=== PATIENT | female | born 1990 | race Caucasian/White ===

== ENCOUNTER 2018-09-25 12:04 | Emergency (ER) | payer MEDICAID, SELFPAY ==
[2018-09-25] VITALS (11 sets, daily range): BP systolic 129–156; BP diastolic 83–88; PULSE 74–133; RESP 14–18; TEMP 36.9; O2SAT 96–98; BMI 33.3
--- NOTE | 2018-09-25 12:15 | CM.ED ---
SOCIAL WORK TERRANCE FROM CRISIS HERE. PATIENT HAS BEEN ASSESSED BY CRISIS IN HOME. PLAN IS FOR PLACEMENT. PATIENT NEEDING MEDICAL CLEARANCE. KOTA DOSS, VOLLEYBALL ASSEMBLER, MEDICAL OFFICE SUPERVISOR.
[2018-09-25 13:08] LABS: Absolute Neutrophil Count 6.3 X10^3/uL (2.0-7.7); Basophil# 0.02 X10^3/uL; Basophil% 0.2 % (0-1); Eosinophil# 0.03 X10^3/uL; Eosinophils% 0.4 % (0-5); Hemoglobin 12.9 g/dl (13.0-16.5); Lymphocyte % 14.6 % (19-41); Mean Corp Hgb Conc 33.1 g/gl (32-36); Mean Corpuscular Hgb 30.1 pg (27.0-32.0); Mean Corpuscular Volume 90.9 fL (80-94); Mean Platelet Vol. 10.7 fl (6.2-12.0); Monocyte# 0.69 X10^3/uL; Monocyte% 8.4 % (0-10); Neutrophil # 6.25 X10^3/uL (2.7-7.7); Neutrophil % 76.3 % (47-70); Platelet Count 330 K/mm3 (150-450); RBC Distribution Width CV 13.4 % (11.6-14.6); RBC Distribution Width SD 44.4 fl (35.1-43.9); Red Blood Count 4.29 M/mm3 (4.6-6.2); White Blood Count 8.2 K/mm3 (4.4-11.0)
[2018-09-25 13:10] LABS: POSITIVE COUNT NO; POSITIVE DIFFERENTIAL NO; POSITIVE MORPHOLOGY NO
[2018-09-25 13:18] LABS: Anion Gap 7 (5-15); BUN 12 mg/dL (7-18); BUN/Creat Ratio 10.7 RATIO (10-20); Calcium,Total 9.1 mg/dL (8.5-10.1); Chloride 111 mmol/L (98-107); Creatinine, Serum 1.12 mg/dL (0.70-1.30); EST Glomerular Filtration Rate 84 mL/min (>60); Est Glom Filt Rate - Afr Amer 102 mL/min (>60); Estimated Creatinine Clearance 86.94 ml/min; Glucose 121 mg/dL (74-106); Potassium 3.7 mmol/L (3.5-5.1); Sodium Level 141 mmol/L (136-145)
--- NOTE | 2018-09-25 13:20 | ED.DCSUM_ITS ---
History of Present Illness Chief Complaint: Suicidal Informant: Patient Onset: Month(s) Current Severity: Mild Narrative: Patient presents from home with police related to suicidal ideation. The patient is a biological male whose name was Fermin patient indicates they are transgender and he prefers to be called Danitza and using the female pronouns Patient indicates a long history of suicidal ideation followed by counseling center. Those are not with the parents last night the patient's suicidal ideation intensified mother called the counseling center counseling center personnel went to the home try to do an assessment found the patient actively suicidal police were called and the patient was brought to the emergency department for evaluation. Patient denies any past history other than suicidal ideation no past medical problems denies drug use Past Medical History - Allergies and Home Meds Allergies/Adverse Reactions: Allergies No Known Allergies Allergy (Verified 09/25/18 12:12) Primary Care Physician: Care Physician,No Primary [Primary Care Provider] - Past Medical History: - - As above Smoking Status: Current every day smoker Review of Systems General: Denies: Chills, Fever, Sweats Eyes: Denies: Visual changes - bilaterally, Diplopia ENT: Denies: Rhinorrhea, Sore throat Cardiovascular: Denies: Chest pain, Palpitations Respiratory: Denies: Dyspnea, Cough, Dyspnea on exertion Gastrointestinal: Denies: Abdominal pain, Nausea, Vomiting, Diarrhea, Melena, Hematochezia Genitourinary: Denies: Dysuria, Hematuria, Frequency Musculoskeletal: Denies: Back pain, Extremity Pain Skin: Denies: Rash, Wounds Neurological: Denies: Headache, Weakness, Numbness Physical Exam Vital Signs/Narrative: Vital Signs Temp Pulse Resp BP Pulse Ox 09/25/18 13:16 15 98 09/25/18 12:10 98.4 F 133 H 18 156/87 H 98 General: Well nourished, Well developed, No Acute Distress Head: Normocephalic, Atraumatic Eyes: Perrl, EOMI ENT: Moist mucous membranes, No rhinorrhea Neck: Supple, Nontender Cardiovascular: Regular rate, Regular rhythm, No murmurs Respiratory: No distress, CTA bilaterally, Chest nontender Abdomen: Soft, Nontender, Nondistended, Normal bowel sounds Back: Nontender, Normal Inspection Extremities: Nontender, No edema Skin: Normal color, No rash Neurological: Alert, Oriented x3, Cranial nerves II-XII grossly intact, Normal Strength, Normal Sensation Psychological: Normal affect, Normal Mood Diagnostic/Tx/Re-eval - Medical Decision Making admits to chronic suicidal ideation indicates there was no specific triggers that intensify the situation other than the argument with the mother the patient is indicating they would not harm themselves they do not wish to be admitted I explained to the patient that the [facility] mental health professional need to see the patient and determine further management options and possible admission. Screening labs were obtained please see those reports, the counseling center personnel seen the patient and believe the patient would benefit from admission and we discussed this with the patient admit For suicidal ideation via [facility] Final impression suicidal ideation, depression, transgender status male to female ED Disposition - Plan for ED Patient: Referrals: Care Physician,No Primary [Primary Care Provider] -
[2018-09-25 13:31] LABS: Alcohol, Blood (Medical)-Serum < 3.0 mg/dL
--- NOTE | 2018-09-25 13:35 | NURSING ---
TERRANCE, LUZMA, CAME WITH PATIENT. TERRANCE LEAVING FOR COUNSELING CENTER. ASKED TO HAVE LABS FAXED TO CRISIS [phone]
[2018-09-25 14:52] LABS: Amphetamine Urine VISTA NEGATIVE (<1000 ng/mL); Barbiturate Urine VISTA NEGATIVE (< 200 ng/mL); Benzodiazepine Urine VISTA NEGATIVE (< 200 ng/mL); Cocaine Urine VISTA NEGATIVE (< 300 ng/mL); Ecstacy Urine VISTA NEGATIVE (< 500 ng/mL); Methadone Urine VISTA NEGATIVE (< 300 ng/mL); PCP Urine VISTA NEGATIVE (< 25 ng/mL); THC Urine VISTA NEGATIVE (< 50 ng/mL); Vista UDS pH Range 6
--- NOTE | 2018-09-25 14:52 | ED.RN ---
WAITING FOR UA RESULTS. PT WAS GIVEN THEIR PHONE. PT RESTING IN BED. NO S/S OF AGITATION OR AGGRESSION. Jeronimo VILLALBA RN [id number]
--- NOTE | 2018-09-25 16:44 | EKG12_ITS ---
Test Reason : [facility] Blood Pressure : / mmHG Vent. Rate : 101 BPM Atrial Rate : 101 BPM P-R Int : 154 ms QRS Dur : 088 ms QT Int : 340 ms P-R-T Axes : 033 014 020 degrees QTc Int : 440 ms Sinus tachycardia Otherwise normal ECG Confirmed by JENNY JAIME, PALMER ([id number]), clinical editor SNEHA MILLER ([id number]) on 09/27/2018 12:10:20 PM Referred By: JULY Confirmed By:PALMER ALVARADO MD
[2018-09-25 18:04] LABS: AST(SGOT) 21 U/L (15-37); Alanine Aminotransfer ALT/SGPT 29 U/L (13-61); Albumin, Serum 4.3 g/dL (3.2-5.0); Alkaline Phosphatase 64 U/L (45-117); Bilirubin, Direct < 0.05 mg/dL (0.00-0.30); Globulin 3.3 g/dL (2.2-4.2); Protein, Total 7.6 g/dL (6.4-8.2)
--- NOTE | 2018-09-25 18:07 | NURSING ---
FAXED EKG AND LIVER PANEL TO [facility]
--- NOTE | 2018-09-25 20:59 | CM.ED ---
SOCIAL WORK CALL TO THE COUNSELING CENTER FOR UPDATE ON REFERRAL TO [facility]. AWAITING CALL BACK. KOTA DOSS, STEWARD/[employer]EWARD[employer]ILRO[employer] D[employer]ING [employer], TURFGRASS MANAGEMENT PROFESSOR.
--- NOTE | 2018-09-25 21:07 | ED.RN ---
NOHELIA BAUGH FROM CRISIS, STILL WAITING ON ACCEPTANCE AT [facility]
--- NOTE | 2018-09-25 22:54 | ED.RN ---
PER THANH FROM [facility], [facility] ATTEMPTING TO DIVERT THIS PT TO ANOTHER FACILITY, NO ACCEPTANCE AT THIS TIME
[2018-09-26] VITALS (7 sets, daily range): BP systolic 126–136; BP diastolic 86–88; PULSE 63–84; RESP 14–16; O2SAT 98
--- NOTE | 2018-09-26 04:22 | ED.RN ---
ATTEMPTED TO ARRANGE TRANSPORT TO [facility] PLACED ON HOLD FOR SEVERAL MINUTES, HAD TO ANSWER OTHER CALLS, WAS UNABLE TO RECONNECT WITH [facility]. INDIGENT PT, [facility] THE [facility] CENTER FOR TRANSPORT.
== END 2018-09-26 09:45 ==
PROVIDERS: Emergency Medicine; Emergency Provider Emergency Medicine
DX: R45.851 Suicidal ideations (principal); F32.9 Major depressive disorder, single episode, unspecified; F17.200 Nicotine dependence, unspecified, uncomplicated
CPT/HCPCS: 36415; 80048; 80076; 80307; 80320; 85025; 93005; 99285; G0480

== ENCOUNTER 2019-03-24 16:47 | Emergency (ER) | payer MEDICAID, SELFPAY ==
[2018-09-25 12:10] VITALS: BMI 33.3
[2019-03-24 16:47] VITALS: BP 143/84; PULSE 106; RESP 16; TEMP 36.4; O2SAT 100; BMI 35.6
[2019-03-24 17:45] VITALS: BP 143/84; PULSE 106; RESP 16; TEMP 36.4; O2SAT 100
[2019-03-24 17:51] LABS: Mucous, Urine 0 SEEN /hpf (<or=2+)
[2019-03-24 17:53] LABS: Color, Urine Yellow (Yellow); Glucose, Dipstick Normal (Normal); Ketone-Dipstick 15 mg/dl (Negative); Leukocyte Esterase-Dipstick 500 /ul (Negative); Nitrite-Dipstick Negative (Negative); Occult Blood-Urine 250 /ul (Negative); Protein-Dipstick 100 mg/dl (Negative); Urine Clarity Cloudy (Clear); Urine Urobilinogen 12 mg/dl (Normal)
[2019-03-24 18:00] LABS: Urine Bilirubin Dipstick 1 mg/dL (Negative)
[2019-03-24 18:02] LABS: White Blood Cells >100 SEEN /hpf (0-5)
[2019-03-24 18:03] LABS: Red Blood Cells-Urine > 100 SEEN /hpf (0-5); Squamous Epithelial Cells - UA 0-5 SEEN /hpf (5-10)
[2019-03-24 18:04] LABS: Transitional Epithelial - Ur 0-5 SEEN /hpf (0-5)
[2019-03-24 18:08] LABS: Bacteria 1+ /hpf (None Seen)
--- NOTE | 2019-03-24 18:37 | ED.VISSUMM ---
- ER Visit Summary Date of Service: 03/24/19 Chief Complaint: Lower abdominal pain and hematuria History of Present Illness: The patient is a 28 F who presents with lower abdominal pain and hematuria that began yesterday. Patient states her pain is over the lower abdomen. Patient describes as dull and aching. Patient states the pain is localized to the suprapubic area. Patient states nothing makes it better or worse. Patient admits to subjective chills. Patient admits to some hematuria and urinary frequency. Physical Examination: Vital signs are stable. Patient is afebrile here. Patient is in no acute distress. Oral mucosa is pink and moist. Neck is supple. Trachea is midline. There is no JVD. Heart was regular rate and rhythm. Lungs are clear and equal bilateral. Abdomen is soft. Bowel sounds are normal. There is some mild suprapubic tenderness. There is no rebound or guarding noted. Cranial nerves II through XII are intact. There are no focal motor or sensory deficits noted. Test Results: Urinalysis shows leukocyte esterase of 500 with occult blood of 250. There are greater than 100 white blood cells and greater than 100 red blood cells. There is 1+ bacteria. Emergency Department Course and Treatment: Patient was given a prescription for Bactrim. Patient was instructed to drink plenty of fluids. Patient was instructed to follow-up with her primary care physician in 5 to 7 days. Patient understood and was agreeable with the plan. All questions were answered. Disposition: Discharge home Impression: Urinary tract infection This note was generated with [employer] dictation software. It may contain incorrect words, spelling, and punctuation that were not noted in review of the chart prior to signing ED Disposition - Plan for ED Patient: Disposition: Home or Assisted Living Diagnosis: Urinary tract infection Instructions: Bladder Infection, Female (Adult) Prescriptions: Smz/Tmp Ds [Bactrim Ds] 1 tab PO BID #6 tab Prescription Printed Referrals: Care Physician,No Primary [Primary Care Provider] - 5-7 Days
== END 2019-03-24 18:48 | disposition home or self-care (01) ==
PROVIDERS: Emergency Provider Emergency Medicine
DX: N39.0 Urinary tract infection, site not specified (principal); Z87.891 Personal history of nicotine dependence
CPT/HCPCS: 81001; 99282

== ENCOUNTER 2019-03-25 16:23 | Emergency (ER) | payer MEDICAID, SELFPAY ==
[2019-03-24 16:47] VITALS: BMI 35.6
[2019-03-25 16:24] VITALS: BP 142/110; PULSE 110; RESP 18; TEMP 35.8; O2SAT 100; BMI 35.5
[2019-03-25 16:27] VITALS: BP 142/110; PULSE 110; RESP 18; TEMP 35.8; O2SAT 100
[2019-03-25 16:55] LABS: Absolute Lymphocyte Count 2.57 X10^3/uL (0.83-4.51); Absolute Neutrophil Count 8.4 X10^3/uL (2.0-7.7); Basophil# 0.02 X10^3/uL; Basophil% 0.2 % (0-1); Eosinophil# 0.01 X10^3/uL; Eosinophils% 0.1 % (0-5); Hemoglobin 13.5 g/dL (12.0-15.0); Lymphocyte # 2.57 X10^3/ul (4.0); Lymphocyte % 21.1 % (19-41); Mean Corp Hgb Conc 32.9 g/dL (32-36); Mean Corpuscular Volume 91.1 fL (81-99); Monocyte# 1.13 X10^3/uL; Monocyte% 9.3 % (0-10); NRBC Flagged by Analyzer 0 % (0-5); Neutrophil # 8.41 X10^3/uL (2.7-7.7); Platelet Count 318 K/mm3 (150-450); RBC Distribution Width CV 13.2 % (11.6-14.6); RBC Distribution Width SD 43.9 fl (35.1-43.9); White Blood Count 12.2 K/mm3 (4.4-11.0)
[2019-03-25 17:36] LABS: Anion Gap 9 (5-15); BUN 6 mg/dL (7-18); BUN/Creat Ratio 5.8 RATIO (10-20); Calcium,Total 9.4 mg/dL (8.5-10.1); Chloride 106 mmol/L (98-107); Creatinine, Serum 1.04 mg/dL (0.55-1.02); EST Glomerular Filtration Rate 68 mL/min (>60); Est Glom Filt Rate - Afr Amer 82 mL/min (>60); Estimated Creatinine Clearance 76.74 ml/min; Glucose 129 mg/dL (74-106); Potassium 3.4 mmol/L (3.5-5.1); Sodium Level 139 mmol/L (136-145)
[2019-03-25 17:37] LABS: Internal QC Validated? YES +Cl - CLEAR BKGD; Pregnancy, Serum, hCG Quali. NEGATIVE Negative
--- NOTE | 2019-03-25 18:13 | CT_ITS ---
STUDY: CT ABDOMEN AND PELVIS WITHOUT CONTRAST REASON FOR EXAM: Female, 28 years old. FLANK PAIN, DX WITH UTI YESTERDAY RADIATION DOSAGE (If Supplied By Facility): CTDIvol = ( 14.35 ) mGy, DLP = ( 749.07 ) mGycm TECHNIQUE: Transaxial images were obtained from the dome of the diaphragm to the symphysis pubis without oral contrast, and without intravenous contrast. Sagittal and coronal images were reconstructed. Individualized dose optimization techniques were used for this CT. COMPARISON: None. FINDINGS: The visualized lung bases are unremarkable. The visualized portions of the heart are within normal limits. Normal liver. Normal gallbladder and extrahepatic biliary system. Normal spleen. Normal pancreas. Normal bilateral adrenal glands. Mild right hydronephrosis and right hydroureter. Mild right perinephric fat stranding and edema. No evidence of obstructing stone. Possibly related to pyelonephritis. Normal left kidney. Normal visualized stomach. Normal small intestine. Normal colon. The appendix is visualized and appears normal. Normal abdominal aorta. Normal inferior vena cava. Normal retroperitoneum. Circumferential bladder wall thickening suggesting cystitis. There is absence of the uterus consistent with a prior hysterectomy. Normal abdominal wall. Normal osseous structures. CT/Abdomen/Pelvis without Cont IMPRESSION: Circumferential bladder wall thickening suggesting cystitis. Mild right hydronephrosis and right hydroureter with perinephric fat stranding and edema. No obstructing stones. Likely related to pyelonephritis. Electronically Signed: Jax Rome DO at 19:40 EST Tel , Service support ,
[2019-03-25] MEDS: Ondansetron 4 MG/2 ML Vial IV (18:20)
[2019-03-25] MEDS: 0.9% Normal Saline 1,000 ML 1000 ML IV (18:21)
[2019-03-25] MEDS: Morphine 4 MG/ML Syringe IV (18:21)
[2019-03-25 18:26] VITALS: RESP 19
[2019-03-25 19:11] LABS: Mucous, Urine 0 SEEN /hpf (<or=2+)
[2019-03-25 19:12] LABS: Color, Urine Yellow (Yellow); Glucose, Dipstick Normal (Normal); Ketone-Dipstick Negative (Negative); Leukocyte Esterase-Dipstick 500 /ul (Negative); Nitrite-Dipstick Negative (Negative); Occult Blood-Urine 250 /ul (Negative); Protein-Dipstick 100 mg/dl (Negative); Urine Bilirubin Dipstick Negative (Negative); Urine Clarity Cloudy (Clear); Urine Urobilinogen 8 mg/dl (Normal)
[2019-03-25 19:19] VITALS: BP 132/76; PULSE 78; RESP 16; O2SAT 97
[2019-03-25 19:26] LABS: Amorphous Sediment 1+ PHOS; Bacteria 1+ /hpf (None Seen); Red Blood Cells-Urine 50-100 SEEN /hpf (0-5); Squamous Epithelial Cells - UA 0-5 SEEN /hpf (5-10); White Blood Cells >100 SEEN /hpf (0-5)
--- NOTE | 2019-03-25 20:04 | ED.DCSUM_ITS ---
- ER Visit Summary Date of Service: 03/25/19 Chief Complaint: Abdominal pain History of Present Illness: The patient is a 28 F who presents with abdominal pain. The patient presented yesterday with hematuria. Diagnosed with a UTI and started on Bactrim for 3 days. Patient reports increasing lower abdominal pain. Denies fevers or other associated symptoms. Denies any discharge or GI symptoms. Physical Examination: Afebrile. Heart rate 110. Otherwise vitals unremarkable. Patient appears uncomfortable but not toxic or in distress. There is suprapubic tenderness. No back tenderness. Heart tachycardic but regular. Lungs clear. Skin appears normal. Test Results: White count 12.2. BMP unremarkable. Urinalysis shows infection. Cultures pending. CT was performed today for increasing pain with concern for stone. It showed cystitis and a right-sided hydro-ureter and hydronephrosis with stranding concerning for pyelonephritis. There is no stone visualized. Emergency Department Course and Treatment: Patient was treated with fluids, morphine, pain medicine while awaiting results. Evaluation is consistent with a urinary tract infection. The patient may be developing pyelonephritis. Cultures are pending. The patient was treated with IV Rocephin and will treat with an extended course of Bactrim for 14 days. Patient was advised that sometimes this can require hospitalization and will return for any complications or worsening condition. Treatment Plan: As above Disposition: Discharge Impression: 1. Right side pyelonephritis This note was generated with [employer] dictation software. It may contain incorrect words, spelling, and punctuation that were not noted in review of the chart prior to signing ED Disposition - Plan for ED Patient: Referrals: Care Physician,No Primary [Primary Care Provider] -
--- NOTE | 2019-03-25 20:07 | DCINST.ED_ITS ---
ED Disposition - Plan for ED Patient: Instructions: PYELONEPHRITIS, Female (Adult) Prescriptions: Smz/Tmp Ds [Bactrim Ds] 1 tab PO BID #22 tab Prescription Printed Hydrocodone Bitart/Apap 5-325 [[place] 5MG-325MG] 1 tab PO Q6H PRN PRN 3 Days #10 tab PRN Reason: Pain Prescription Printed Referrals: Indira Choe [NON-STAFF] -
[2019-03-25] MEDS: Ceftriaxone 1 GM/50 ML BAG IV (20:39)
[2019-03-25 21:34] VITALS: BP 122/76; PULSE 78; RESP 17; O2SAT 98
== END 2019-03-25 21:35 | disposition home or self-care (01) ==
PROVIDERS: Emergency Provider Emergency Medicine
DX: N12 Tubulo-interstitial nephritis, not specified as acute or chronic (principal); N39.0 Urinary tract infection, site not specified
CPT/HCPCS: 36415; 74176; 80048; 81001; 84703; 85025; 87086; 87088; 96361; 96365; 96375; 99284; J7030; A4216; J2405

== ENCOUNTER 2020-08-22 20:12 | Emergency (ER) | payer MEDICAID, SELFPAY ==
[2020-08-22 20:13] VITALS: BP 148/97; PULSE 83; RESP 16; TEMP 36.2; O2SAT 99; BMI 20.8
--- NOTE | 2020-08-22 20:49 | ED.RN ---
WHILE IN TRIAGE PT STATED TO PARENT THAT HOSPITALIZATION NEVER WORKS. STATES SHE DOES NOT FEEL SAFE THERE AND SHE WILL ONLY LIE WITH EVERYTHING SHE CAN TO GET OUT OF THERE. STATES DOES NOT WANT TO BE AT HERE AND CAN'T DO THIS. MOTHER KEEPS EXPLAINING THAT THIS NEEDS TO HAPPEN BTO KEEP HER SAFE. PT ALSO HAS SOME PARANOID BEHAVIOR IN REGARDS TO OTHER PEOPLE AND NOISES AROUND HER. VERY JUMPING IF SHE HERES OR SEES SOMEONE SHE NOT EXPECTING TO BE THERE. WALKED INTO TRIAGE WITH HEAD DOWN AND HAIR FALLING FORWARD AND AROUND HER FACE SO IT WAS DIFFICULT TO ACTUALLY SEE HER FACE.
--- NOTE | 2020-08-22 20:52 | ED.RN ---
WHEN PT BECAME INCREASINGLY ADAMANT THAT SHE WAS NOT GOING TO STAY, HRO AND SECURITY WERE NOTIFIED TO STAND AT THE DOOR TO ENSURE PTS SAFETY.
[2020-08-22 21:12] VITALS: RESP 14
[2020-08-22 21:18] LABS: Absolute Lymphocyte Count 2.28 X10^3/uL (0.83-4.51); Absolute Neutrophil Count 6.8 X10^3/uL (2.0-7.7); Basophil# 0.03 X10^3/uL; Basophil% 0.3 % (0-1); Eosinophil# 0.04 X10^3/uL; Eosinophils% 0.4 % (0-5); Hematocrit 38.8 % (37-47); Lymphocyte # 2.28 X10^3/ul (0.83-4.51); Lymphocyte % 23.3 % (19-41); Mean Corp Hgb Conc 33.5 g/dL (32-36); Mean Corpuscular Hgb 30.7 pg (27.0-32.0); Mean Corpuscular Volume 91.7 fL (81-99); Mean Platelet Vol. 11.7 fl (6.2-12.0); Monocyte# 0.59 X10^3/uL; NRBC Flagged by Analyzer 0 % (0-5); Neutrophil # 6.82 X10^3/uL (2.7-7.7); Neutrophil % 69.8 % (47-70); Platelet Count 276 K/mm3 (150-450); RBC Distribution Width CV 12.7 % (11.6-14.6); RBC Distribution Width SD 42.3 fl (35.1-43.9); Red Blood Count 4.23 M/mm3 (4.2-5.4); White Blood Count 9.8 K/mm3 (4.4-11.0)
[2020-08-22 21:31] LABS: Anion Gap 8 (5-15); BUN 11 mg/dL (7-18); Calcium,Total 9.3 mg/dL (8.5-10.1); Chloride 108 mmol/L (98-107); Creatinine, Serum 0.92 mg/dL (0.55-1.02); EST Glomerular Filtration Rate 78 mL/min (>60); Est Glom Filt Rate - Afr Amer 94 mL/min (>60); Estimated Creatinine Clearance 84.09 ml/min; Glucose 93 mg/dL (74-106); Potassium 3.6 mmol/L (3.5-5.1); Sodium Level 140 mmol/L (136-145)
[2020-08-22 21:33] LABS: Internal QC Validated? YES +Cl - CLEAR BKGD; Pregnancy, Serum, hCG Quali. NEGATIVE Negative
--- NOTE | 2020-08-22 21:58 | EX.ED.DYSGE1 ---
HPI History of Present Illness Chief Complaint: Suicidal Narrative Narrative: 30-year-old genetically male transitioning to female presenting with suicidal ideation. She states she is on hormone replacement therapy. She also states that she suffers from longstanding depression and suicidal ideation. Patient states he attempted to kill himself by hanging many years ago but had a failed attempt. He is currently stating that his plan would be to jump in front of a train because he states he has been doing Internet research that shows there is a high mortality rate with this. Patient has not ingested any medications. PFSH PFSH Home Medications estradiol 2 mg PO DAILY 03/24/19 [History Last Taken Unknown] finasteride 5 mg PO DAILY 08/22/20 [History Last Taken Unknown] spironolactone 25 mg PO BID 08/22/20 [History Last Taken Unknown] Allergy/AdvReac Type Severity Reaction Status Date / Time No Known Allergies Allergy Verified 03/25/19 16:25 Social History Smoking Status: Unknown if ever smoked ROS ROS ED Constitutional Constitutional ED: Denies chills, fever(s) or sweats Eyes Eyes: Denies blurry vision or change in vision ENT ENT ED: Denies ear pain, rhinorrhea or sore throat Cardiovascular Cardiovascular: Denies chest pain, palpitations or racing heartbeat Respiratory/Chest Respiratory/Chest: Denies cough, dyspnea or sputum Gastrointestinal Gastrointestinal: Denies abdominal pain, constipation, diarrhea or vomiting Genitourinary Genitourinary ED: Denies dysuria, hematuria or urinary frequency Musculoskeletal Musculoskeletal: Denies arthralgias, myalgias or neck pain Integumentary Denies abscess, Abrasions or rash Neurologic Neurologic: Denies headache(s), paresthesias or weakness Psychiatric Psychiatric: Reports suicidal ideation and suicidal thoughts; Denies anxiety or depression Endocrine Endocrinology: Denies polydipsia or polyuria EXAM Physical Exam Const Vital Signs: 08/22/20 20:13 08/22/20 21:12 08/22/20 22:00 Temperature 97.2 F L Temperature Source Temporal Pulse Rate 83 Respiratory Rate 16 14 14 Blood Pressure 148/97 H Blood Pressure Mean 114 Pulse Ox 99 Oxygen Delivery Method Room Air Positive well nourished and well developed General Appearance ED: well developed; Negative for pallor HEENT Reports normocephalic, head/scalp atraumatic and moist mucous membranes normocephalic and atraumatic Eyes PERRL and EOMs intact bilaterally Neck no lymphadenopathy and supple Chest Wall inspection of chest normal and palpation of chest normal Resp normal respiratory effort and clear to auscultation bilaterally Auscultation: Negative for rales, rhonchi or wheezes Cardio regular rate and regular rhythm GI normal to inspection, nondistended, normoactive bowel sounds and non-distended Auscultation: normoactive bowel sounds Palpation: soft Narrative: Deferred Back/Spine Cervical Spine: cervical spine tenderness Extremity normal to inspection General Extremety ED: Negative for edema or tenderness General Extremity: Negative for edema Neuro oriented x3 and CN's II-XII intact bilaterally Sensorium / Orientation: alert Motor Exam: strength 5/5 throughout Psych denies hallucinations and denies homicidal ideation Psych Narrative: Admits to suicidal ideation with a plan. Attitude: No agitated Skin no rashes or lesions noted and no wounds General Skin Exam: Negative for jaundice or pallor MDM MDM MDM Narrative Medical decision making narrative: Patient presents with suicidal ideation and longstanding depression. He states this stems from family troubles and nobody understanding her transgender transition. She has previous attempt of suicide. She does admit she has been looking up ways on the Internet to kill herself with high kill rates. She currently states she would try to jump in front of a train. Patient is medically cleared by lab work at this time. I will have her talk to crisis. Patient will be signed out to incoming ED physician for follow-up and placement. Impression: 1. Suicidal ideation Lab Data Labs: Laboratory Results - last 24 hr 08/22/20 08/22/20 08/22/20 21:10 21:10 21:10 WBC 9.8 RBC 4.23 Hgb 13.0 Hct 38.8 MCV 91.7 MCH 30.7 MCHC 33.5 RDW Std Deviation 42.3 RDW Coeff of Carrie 12.7 Plt Count 276 MPV 11.7 Immature Gran % (Auto) 0.200 Neut % (Auto) 69.8 Lymph % (Auto) 23.3 [place] % (Auto) 6.0 Eos % (Auto) 0.4 Baso % (Auto) 0.3 Absolute Neuts (auto) 6.8 Absolute Lymphs (auto) 2.28 Nucleated RBC % 0 Sodium 140 Potassium 3.6 Chloride 108 H Carbon Dioxide 24.0 Anion Gap 8 BUN 11 Creatinine 0.92 Estim Creat Clear Calc 84.09 Est GFR (MDRD) Af Amer 94 Est GFR (MDRD) Non-Af 78 BUN/Creatinine Ratio 12.0 Glucose 93 Calcium 9.3 Serum , Qual Urine Opiates Screen Urine Methadone Screen Ur Barbiturates Screen Ur Phencyclidine Scrn Ur Amphetamines Screen U Methamphetamin-MDMA U Benzodiazepines Scrn Urine Cocaine Screen U Cannabinoids Screen Ur Drug Screen Comment Ethyl Alcohol < 3.0 08/22/20 08/22/20 21:10 21:40 WBC RBC Hgb Hct MCV MCH MCHC RDW Std Deviation RDW Coeff of Carrie Plt Count MPV Immature Gran % (Auto) Neut % (Auto) Lymph % (Auto) [place] % (Auto) Eos % (Auto) Baso % (Auto) Absolute Neuts (auto) Absolute Lymphs (auto) Nucleated RBC % Sodium Potassium Chloride Carbon Dioxide Anion Gap BUN Creatinine Estim Creat Clear Calc Est GFR (MDRD) Af Amer Est GFR (MDRD) Non-Af BUN/Creatinine Ratio Glucose Calcium Serum , Qual NEGATIVE Urine Opiates Screen NEGATIVE Urine Methadone Screen NEGATIVE Ur Barbiturates Screen NEGATIVE Ur Phencyclidine Scrn NEGATIVE Ur Amphetamines Screen NEGATIVE U Methamphetamin-MDMA NEGATIVE U Benzodiazepines Scrn NEGATIVE Urine Cocaine Screen NEGATIVE U Cannabinoids Screen NEGATIVE Ur Drug Screen Comment Ethyl Alcohol Discharge Plan Triage Chief Complaint: Suicidal ED Provider: Bin George Dx/Rx/DC Orders Prescriptions: No Action estradiol 2 MG tablet 2 mg PO DAILY RF: 0 spironolactone 25 mg Tablet 25 mg PO BID RF: 0 finasteride 5 mg tablet 5 mg PO DAILY RF: 0 Primary Care Provider: Care Physician,No Primary
[2020-08-22 22:00] VITALS: RESP 14
[2020-08-22 22:08] LABS: Alcohol, Blood (Medical)-Serum < 3.0 mg/dL
[2020-08-22 22:11] LABS: Amphetamine Urine VISTA NEGATIVE (<1000 ng/mL); Barbiturate Urine VISTA NEGATIVE (< 200 ng/mL); Benzodiazepine Urine VISTA NEGATIVE (< 200 ng/mL); Cocaine Urine VISTA NEGATIVE (< 300 ng/mL); Ecstacy Urine VISTA NEGATIVE (< 500 ng/mL); Methadone Urine VISTA NEGATIVE (< 300 ng/mL); PCP Urine VISTA NEGATIVE (< 25 ng/mL); THC Urine VISTA NEGATIVE (< 50 ng/mL); Vista UDS pH Range 6
--- NOTE | 2020-08-22 22:33 | NURSING ---
CALLED CRISIS AT [phone]
[2020-08-22 23:00] VITALS: RESP 15
[2020-08-22] MEDS: Finasteride 5 MG Tablet PO (23:36)
[2020-08-22] MEDS: Spironolactone 25 MG Tablet PO (23:36)
[2020-08-22] MEDS: Estradiol 1 MG Tablet 2 MG PO (23:37)
--- NOTE | 2020-08-22 23:43 | ED.RN ---
CRISIS HERE SEEING PATIENT AT THIS TIME
[2020-08-23] VITALS (9 sets, daily range): BP systolic 97–132; BP diastolic 56–70; PULSE 63–74; RESP 14–18; O2SAT 96–99
--- NOTE | 2020-08-23 08:17 | ED.RN ---
darcy sanders called about pts behavior. information given and facility stated they would review and call back
[2020-08-23] MEDS: Spironolactone 25 MG Tablet PO (09:09)
== END 2020-08-23 09:25 ==
PROVIDERS: Emergency Provider Emergency Medicine
DX: R45.851 Suicidal ideations (principal); F32.9 Major depressive disorder, single episode, unspecified; Z79.890 Hormone replacement therapy
CPT/HCPCS: 80048; 80307; 82077; 84703; 85025; 87426; 99285

== ENCOUNTER 2020-11-05 14:44 | Emergency (ER) | payer MEDICAID, SELFPAY ==
[2020-11-05 14:45] VITALS: BP 121/76; PULSE 88; RESP 18; TEMP 36.7; O2SAT 100; BMI 23.3
--- NOTE | 2020-11-05 15:12 | EDS_ITS ---
HPI History of Present Illness Chief Complaint: Suicidal Narrative Narrative: 30-year-old female presenting with chief complaint of suicidal ideation and attempt. Patient states that today she was feeling very anxious and was hitting her head against the wall. She states she did not get knocked out but does have a headache from it. She denies dizziness, nausea, vomiting. Patient states he subsequently tried to put a noose around her neck to hang herself and was caught by her family. They did take this away. Patient states that she has been thinking about jumping in front of a train as well. Patient states he was recently hospitalized a couple of months ago and is on BuSpar as well as Abilify. [facility] Medical History (Updated 11/05/20 @ 15:18 by Tiffany Pineda) Anxiety Depression Home Medications estradiol 2 mg PO QHS 03/24/19 [History Last Taken Unknown] finasteride 5 mg PO QHS 08/22/20 [History Last Taken Unknown] spironolactone 50 mg PO QHS 08/22/20 [History Last Taken Unknown] aripiprazole 10 mg PO QHS 11/05/20 [History Last Taken Unknown] aspirin 81 mg PO QHS 11/05/20 [History Last Taken Unknown] buspirone 5 mg PO QHS 11/05/20 [History Last Taken Unknown] multivitamin 1 cap PO QHS 11/05/20 [History Last Taken Unknown] Allergy/AdvReac Type Severity Reaction Status Date / Time No Known Allergies Allergy Verified 11/05/20 14:47 Social History Smoking Status: Current every day smoker tobacco type: cigarettes ROS ROS ED Constitutional Constitutional ED: Denies fatigue or fever(s) Eyes Eyes: Denies blurry vision or change in vision ENT ENT ED: Denies ear pain or sore throat Cardiovascular Cardiovascular: Denies chest pain, palpitations or racing heartbeat Respiratory/Chest Respiratory/Chest: Denies cough, dyspnea or sputum Gastrointestinal Gastrointestinal: Denies abdominal pain, constipation, diarrhea, nausea or vomiting Genitourinary Genitourinary ED: Denies dysuria, hematuria or urinary frequency Musculoskeletal Musculoskeletal: Denies arthralgias, myalgias or neck pain Integumentary Denies abscess, Abrasions or rash Neurologic Neurologic: Denies headache(s), paresthesias or weakness Psychiatric Psychiatric: Reports anxiety, depression, suicidal ideation and suicidal thoughts Endocrine Endocrinology: Denies polydipsia or polyuria EXAM Physical Exam Const Vital Signs: 11/05/20 14:45 11/05/20 17:04 11/05/20 18:20 Temperature 98.1 F Temperature Source Temporal Pulse Rate 88 80 Respiratory Rate 18 16 16 Blood Pressure 121/76 H 103/66 Blood Pressure Mean 91 78 Pulse Ox 100 100 Oxygen Delivery Method Room Air Room Air General Appearance ED: active; Negative for pallor HEENT Reports normocephalic, head/scalp atraumatic and moist mucous membranes Eyes PERRL and EOMs intact bilaterally Neck no lymphadenopathy and supple Chest Wall inspection of chest normal and palpation of chest normal Resp normal respiratory effort and clear to auscultation bilaterally Auscultation: Negative for rales, rhonchi or wheezes Cardio regular rate and regular rhythm GI normal to inspection, nondistended, normoactive bowel sounds and non-distended Auscultation: normoactive bowel sounds Palpation: soft Narrative: Deferred Back/Spine Cervical Spine: Negative for cervical spine tenderness Extremity normal to inspection General Extremety ED: Yes edema and tenderness General Extremity: edema Neuro oriented x3 and CN's II-XII intact bilaterally Sensorium / Orientation: alert Motor Exam: strength 5/5 throughout Psych speech normal Attitude: calm and No agitated Thought Content: suicidality, No homicidality, No delusion(s) and No hallucination(s) Memory / Cognition: memory grossly intact Insight: poor Judgement: poor Skin no rashes or lesions noted and no wounds General Skin Exam: Negative for jaundice or pallor MDM MDM MDM Narrative Medical decision making narrative: Patient presenting with suicidal ideation and a plan to either jump in front of a train or hang herself. She was caught with a noose earlier today and this was taken from her. Patient's vital signs are stable and she is afebrile. She has been calm in the ED. She requested something for anxiety was given Ativan 1 mg. Patient's lab work-up is unremarkable. hCG negative. Urine drug screen positive for cannabinoids but otherwise no other drugs. Patient is currently awaiting acceptance to [facility]. She was here previously. Patient is medically clear at this time. Impression: 1. Suicidal ideation 2 Suicide attempt Lab Data Attestation: I reviewed the patient's lab results. Labs: Laboratory Results - last 24 hr 11/05/20 11/05/20 11/05/20 15:28 15:28 15:28 WBC 7.4 RBC 3.86 L Hgb 11.9 L Hct 37.1 MCV 96.1 MCH 30.8 MCHC 32.1 RDW Std Deviation 47.6 H RDW Coeff of Carrie 13.3 Plt Count 260 MPV 11.3 Immature Gran % (Auto) 0.400 Neut % (Auto) 77.7 H Lymph % (Auto) 15.9 L [place] % (Auto) 5.6 Eos % (Auto) 0.1 Baso % (Auto) 0.3 Absolute Neuts (auto) 5.7 Absolute Lymphs (auto) 1.17 Nucleated RBC % 0 Sodium 140 Potassium 4.0 Chloride 108 H Carbon Dioxide 27.0 Anion Gap 5 BUN 12 Creatinine 0.70 Estim Creat Clear Calc 112.01 Est GFR (MDRD) Af Amer 129 Est GFR (MDRD) Non-Af 107 BUN/Creatinine Ratio 17.3 Glucose 91 Calcium 8.4 L Total Bilirubin 0.30 AST 13 L ALT 23 Alkaline Phosphatase 40 L Total Protein 6.5 Albumin 3.7 Globulin 2.8 Albumin/Globulin Ratio 1.3 Serum , Qual Urine Opiates Screen Urine Methadone Screen Ur Barbiturates Screen Ur Phencyclidine Scrn Ur Amphetamines Screen U Methamphetamin-MDMA U Benzodiazepines Scrn Urine Cocaine Screen U Cannabinoids Screen Ur Drug Screen Comment Ethyl Alcohol 9.0 11/05/20 11/05/20 15:28 16:00 WBC RBC Hgb Hct MCV MCH MCHC RDW Std Deviation RDW Coeff of Carrie Plt Count MPV Immature Gran % (Auto) Neut % (Auto) Lymph % (Auto) [place] % (Auto) Eos % (Auto) Baso % (Auto) Absolute Neuts (auto) Absolute Lymphs (auto) Nucleated RBC % Sodium Potassium Chloride Carbon Dioxide Anion Gap BUN Creatinine Estim Creat Clear Calc Est GFR (MDRD) Af Amer Est GFR (MDRD) Non-Af BUN/Creatinine Ratio Glucose Calcium Total Bilirubin AST ALT Alkaline Phosphatase Total Protein Albumin Globulin Albumin/Globulin Ratio Serum , Qual NEGATIVE Urine Opiates Screen NEGATIVE Urine Methadone Screen NEGATIVE Ur Barbiturates Screen NEGATIVE Ur Phencyclidine Scrn NEGATIVE Ur Amphetamines Screen NEGATIVE U Methamphetamin-MDMA NEGATIVE U Benzodiazepines Scrn NEGATIVE Urine Cocaine Screen NEGATIVE U Cannabinoids Screen POSITIVE H Ur Drug Screen Comment Ethyl Alcohol Radiography Diagnostic Testing: Radiology Impression Brain CT 11/05/20 15:12 IMPRESSION: No acute intracranial abnormality. Electronically Signed: Roney Cruz MD at 17:01 EDT Tel , Service support , Discharge Plan Triage Chief Complaint: Suicidal ED Provider: Bin George Dx/Rx/DC Orders Prescriptions: No Action estradiol 2 MG tablet 2 mg PO QHS RF: 0 spironolactone 25 mg Tablet 50 mg PO QHS RF: 0 finasteride 5 mg tablet 5 mg PO QHS RF: 0 buspirone 5 mg tablet 5 mg PO QHS RF: 0 multivitamin Capsule 1 cap PO QHS RF: 0 aripiprazole 10 mg tablet 10 mg PO QHS RF: 0 aspirin 81 mg Capsule 81 mg PO QHS RF: 0 Primary Care Provider: Care Physician,No Primary
--- NOTE | 2020-11-05 15:12 | CT_ITS ---
EXAMINATION : Head CT w/out contrast HISTORY : head injury COMPARISON : None. TECHNIQUE : Multiple contiguous axial images were obtained from the skull base to the vertex without intravenous contrast. A radiation dose optimization technique was used for this scan. FINDINGS : The ventricles and sulci are normal in size. There is no evidence for acute intracranial hemorrhage, mass effect, or midline shift. There is no extra-axial fluid collection. There is normal suárez-white differentiation, without CT evidence of acute ischemia or infarct. The skull base and calvarium are unremarkable. The orbits are unremarkable. The paranasal sinuses are clear. The mastoid air cells are well-aerated. The soft tissues are unremarkable. CT/Brain/Head without Contrast IMPRESSION: No acute intracranial abnormality. Electronically Signed: Roney Cruz MD at 17:01 EDT Tel , Service support ,
--- NOTE | 2020-11-05 15:33 | ED.RN ---
pt preferred pronoun she.
[2020-11-05] MEDS: LORazepam 1 MG Tablet PO (15:38)
[2020-11-05 15:42] LABS: Absolute Lymphocyte Count 1.17 X10^3/uL (0.83-4.51); Absolute Neutrophil Count 5.7 X10^3/uL (2.0-7.7); Basophil# 0.02 X10^3/uL; Basophil% 0.3 % (0-1); Eosinophil# 0.01 X10^3/uL; Eosinophils% 0.1 % (0-5); Hematocrit 37.1 % (37-47); Hemoglobin 11.9 g/dL (12.0-15.0); Lymphocyte # 1.17 X10^3/ul (0.83-4.51); Lymphocyte % 15.9 % (19-41); Mean Corp Hgb Conc 32.1 g/dL (32-36); Mean Corpuscular Hgb 30.8 pg (27.0-32.0); Mean Corpuscular Volume 96.1 fL (81-99); Mean Platelet Vol. 11.3 fl (6.2-12.0); Monocyte# 0.41 X10^3/uL; Monocyte% 5.6 % (0-10); NRBC Flagged by Analyzer 0 % (0-5); Neutrophil # 5.74 X10^3/uL (2.7-7.7); Neutrophil % 77.7 % (47-70); Platelet Count 260 K/mm3 (150-450); RBC Distribution Width CV 13.3 % (11.6-14.6); RBC Distribution Width SD 47.6 fl (35.1-43.9); Red Blood Count 3.86 M/mm3 (4.2-5.4); White Blood Count 7.4 K/mm3 (4.4-11.0)
[2020-11-05 16:00] LABS: ALB/GLOB Ratio 1.3 RATIO (0.9-2.4); AST(SGOT) 13 U/L (15-37); Alanine Aminotransfer ALT/SGPT 23 U/L (13-56); Albumin, Serum 3.7 g/dL (3.2-5.0); Alkaline Phosphatase 40 U/L (45-117); Anion Gap 5 (5-15); BUN 12 mg/dL (7-18); BUN/Creat Ratio 17.3 RATIO (10-20); Calcium,Total 8.4 mg/dL (8.5-10.1); Chloride 108 mmol/L (98-107); EST Glomerular Filtration Rate 107 mL/min (>60); Est Glom Filt Rate - Afr Amer 129 mL/min (>60); Estimated Creatinine Clearance 112.01 ml/min; Globulin 2.8 g/dL (2.2-4.2); Glucose 91 mg/dL (74-106); Protein, Total 6.5 g/dL (6.4-8.2); Sodium Level 140 mmol/L (136-145)
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
[2020-11-05 16:15] LABS: Internal QC Validated? YES +Cl - CLEAR BKGD; Pregnancy, Serum, hCG Quali. NEGATIVE Negative
[2020-11-05 16:26] LABS: Amphetamine Urine VISTA NEGATIVE (<1000 ng/mL); Barbiturate Urine VISTA NEGATIVE (< 200 ng/mL); Benzodiazepine Urine VISTA NEGATIVE (< 200 ng/mL); Cocaine Urine VISTA NEGATIVE (< 300 ng/mL); Ecstacy Urine VISTA NEGATIVE (< 500 ng/mL); Methadone Urine VISTA NEGATIVE (< 300 ng/mL); PCP Urine VISTA NEGATIVE (< 25 ng/mL); THC Urine VISTA POSITIVE (< 50 ng/mL); Vista UDS pH Range 7
[2020-11-05 17:04] VITALS: RESP 16
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
--- NOTE | 2020-11-05 18:01 | CM.ED ---
SOCIAL WORK Referral called and faxed to [facility]. Pending acceptance at this time. Lit Ovalles, DIETARY SERVICE AIDE, LOTTERIES AGENT
[2020-11-05 18:20] VITALS: BP 103/66; PULSE 80; RESP 16; O2SAT 100
--- NOTE | 2020-11-05 22:04 | ED.RN ---
PT HAS BEEN REFEREED TO [facility]. PATIENT IS CURRENTLY 3RD ON THE WAITING LIST AT THIS TIME
--- NOTE | 2020-11-05 22:59 | ED.RN ---
PATIENT CHART HAS BEEN FAXED TO [facility] AT THIS TIME FOR POSSIBLE ADMISSION
[2020-11-05 23:00] VITALS: BP 116/71; PULSE 68; RESP 14; O2SAT 100
--- NOTE | 2020-11-05 23:10 | ED.RN ---
Addendum entered by Jody Maya 11/05/20 23:14: CORRECTION, CALL FROM [facility]. Original Note: PER CALL FROM [facility], NO BEDS AVAILABLE TONIGHT. PT WILL BE TRIAGED AGAIN AT 1000 TOMORROW, IF PT IS ACCEPTED AT THAT TIME, [facility] WILL CALL BACK. PT WILL ALSO BE AT LEAST THIRD ON WAIT LIST FOR BED.
--- NOTE | 2020-11-06 00:05 | ED.RN ---
ATTEMPTED TO CALL NURSE TO NURSE REPORT, FACILITY WILL CALL BACK WHEN ABLE TO TAKE REPORT.
== END 2020-11-06 00:27 ==
LOC: ED 15:36
PROVIDERS: Emergency Provider Student in an Organized Health Care Education/Training Program
DX: R45.851 Suicidal ideations (principal); F32.9 Major depressive disorder, single episode, unspecified; F41.9 Anxiety disorder, unspecified; F17.210 Nicotine dependence, cigarettes, uncomplicated; Z79.82 Long term (current) use of aspirin; Z79.899 Other long term (current) drug therapy
CPT/HCPCS: 70450; 80053; 80307; 82077; 84703; 85025; 87426; 99285

== ENCOUNTER 2021-02-05 03:18 | Emergency (ER) | payer MEDICAID, SELFPAY ==
[2021-02-05 03:19] VITALS: BP 135/83; PULSE 90; RESP 18; TEMP 37.1; O2SAT 99; BMI 23.9
--- NOTE | 2021-02-05 03:30 | EKG12_ITS ---
Test Reason : CP Blood Pressure : / mmHG Vent. Rate : 089 BPM Atrial Rate : 089 BPM P-R Int : 152 ms QRS Dur : 094 ms QT Int : 368 ms P-R-T Axes : 079 059 067 degrees QTc Int : 447 ms Normal sinus rhythm Normal ECG Confirmed by JENNY JAIME, PALMER ([id number]), editorial director JENN BOYD ([id number]) on 02/05/2021 11:26:07 AM Referred By: KEL Confirmed By:PALMER ALVARADO MD
--- NOTE | 2021-02-05 03:32 | EDS_ITS ---
HPI History of Present Illness Chief Complaint: Chest Pain Informant: patient Narrative Narrative: Patient tells me she had a bad panic attack but she is doing a little better now. She did smoke/vape synthetic marijuana earlier. She had a full on panic attack. She had palpitations and some chest discomfort. She had mild dyspnea. She had trouble focusing. She states she could not stop shaking and would curl up into the position. She can stop screaming out. It is doing better now. She has had these before but this was worse than her normal panic attacks. She is still taking her other medicines for chronic anxiety and depression. [facility] Medical History Anxiety Depression Home Medications estradiol 2 mg PO QHS 03/24/19 [History Last Taken Unknown] finasteride 5 mg PO QHS 08/22/20 [History Last Taken Unknown] spironolactone 50 mg PO QHS 08/22/20 [History Last Taken Unknown] aripiprazole 10 mg PO QHS 11/05/20 [History Last Taken Unknown] aspirin 81 mg PO QHS 11/05/20 [History Last Taken Unknown] buspirone 5 mg PO QHS 11/05/20 [History Last Taken Unknown] multivitamin 1 cap PO QHS 11/05/20 [History Last Taken Unknown] hydroxyzine pamoate 50 mg PO TID PRN PRN #30 cap 02/05/21 [Rx Last Taken Unknown] Allergy/AdvReac Type Severity Reaction Status Date / Time No Known Allergies Allergy Verified 02/05/21 03:23 Social History Smoking Status: Current every day smoker tobacco type: cigarettes ROS ROS ED Constitutional Constitutional ED: Denies chills or fever(s) Eyes Eyes: Denies blurry vision, change in vision or diplopia ENT ENT ED: Denies rhinorrhea Cardiovascular Cardiovascular: Reports chest pain, palpitations and racing heartbeat Respiratory/Chest Respiratory/Chest: Reports dyspnea; Denies cough or sputum Gastrointestinal Gastrointestinal: Denies nausea or vomiting Genitourinary Genitourinary ED: Denies dysuria Musculoskeletal Musculoskeletal: Denies myalgias Integumentary Denies rash Neurologic Neurologic: Denies headache(s), paresthesias or weakness Psychiatric Psychiatric: Reports anxiety; Denies suicidal ideation or suicidal thoughts Allergic/Immunologic Allergic/Immunologic ED: Denies mouth swelling, tongue swelling or urticaria EXAM Physical Exam Const Vital Signs: 02/05/21 03:19 02/05/21 03:23 02/05/21 04:39 Temperature 98.7 F Temperature Source Temporal Pulse Rate 90 71 Respiratory Rate 18 18 Respiratory Effort Normal Respiratory Pattern Normal Blood Pressure 135/83 H 113/61 Blood Pressure Mean 100 78 Pulse Ox 99 96 Oxygen Delivery Method Room Air Room Air 02/05/21 06:27 Temperature Temperature Source Pulse Rate 90 Respiratory Rate 18 Respiratory Effort Respiratory Pattern Blood Pressure 101/70 Blood Pressure Mean 80 Pulse Ox 98 Oxygen Delivery Method Room Air Positive well nourished and well developed Constitutional Narrative: When patient came into triage we could hear her screaming out. But she is calm down a lot just in the few minutes she has been here. General Appearance ED: well developed and NAD HEENT Negative for trauma Eyes PERRL and EOMs intact bilaterally Neck no JVD Chest Wall inspection of chest normal Resp normal respiratory effort and clear to auscultation bilaterally Effort and Inspection: Negative for pain with movement Auscultation: Negative for rales, rhonchi or wheezes Cardio regular rate and regular rhythm GI normal to inspection, nondistended, normoactive bowel sounds and non-tender Palpation: soft Back/Spine no CVA tenderness Extremity normal to inspection General Extremety ED: Negative for tenderness Neuro oriented x3 Sensorium / Orientation: alert Psych Psych Narrative: Patient is still a little bit anxious. She does have a's fine tremor diffusely. But she also states she is feeling better. Mood & Affect: anxious Skin no rashes or lesions noted MDM MDM MDM Narrative Medical decision making narrative: Patient was initially doing well. She now feels as though her anxiety is coming back. She is again throwing her hands up in the air randomly. This is not seizure activity. At this point I will check some electrolytes, give her fluids and further Ativan to see if we can help her more. Patient is resting quietly now. I talked with her mother. She is having more issues with anxiety. She has been using meds to try to help this. But she is not seeing a counselor psychiatrist or primary physician at this point. They were seeing a counselor but the counselor called EMS once when the patient was suicidal. That broke the trust. She is evidently not suicidal now but has been in the past. I will refer to psychiatry. I will write for some Vistaril. Lab Data Labs: Laboratory Results - last 24 hr 02/05/21 02/05/21 04:40 04:40 WBC 10.5 RBC 3.80 L Hgb 11.8 L Hct 35.3 L MCV 92.9 MCH 31.1 MCHC 33.4 RDW Std Deviation 43.8 RDW Coeff of Carrie 12.9 Plt Count 278 MPV 11.1 Immature Gran % (Auto) 0.400 Neut % (Auto) 74.4 H Lymph % (Auto) 16.5 L [place] % (Auto) 8.2 Eos % (Auto) 0.3 Baso % (Auto) 0.2 Absolute Neuts (auto) 7.8 H Absolute Lymphs (auto) 1.74 Nucleated RBC % 0 Sodium 138 Potassium 3.4 L Chloride 107 Carbon Dioxide 24.0 Anion Gap 7 BUN 13 Creatinine 0.79 Estim Creat Clear Calc 99.25 Est GFR (MDRD) Af Amer 111 Est GFR (MDRD) Non-Af 92 BUN/Creatinine Ratio 16.4 Glucose 104 Calcium 8.4 L EKG Initial EKG: Comments: EKG done for chest pain palpitations read by me showed normal sinus rhythm with a ventricular rate of 89. No ventricular ectopy. No acute ST elevation or depression. ND interval, QRS duration and QTc are normal. Discharge Plan Triage Chief Complaint: Chest Pain ED Provider: Chito Jeff Dx/Rx/DC Orders Clinical Impression: Panic attack Instructions: ED Panic Attack Prescriptions: New hydroxyzine pamoate [hydroxyzine pamoate] 25 MG capsule 50 mg PO TID PRN PRN (Reason: Anxiety) Qty: 30 RF: 0 No Action estradiol 2 MG tablet 2 mg PO QHS RF: 0 spironolactone 25 mg Tablet 50 mg PO QHS RF: 0 finasteride 5 mg tablet 5 mg PO QHS RF: 0 buspirone 5 mg tablet 5 mg PO QHS RF: 0 multivitamin Capsule 1 cap PO QHS RF: 0 aripiprazole 10 mg tablet 10 mg PO QHS RF: 0 aspirin 81 mg Capsule 81 mg PO QHS RF: 0 Primary Care Provider: Care Physician,No Primary Referrals: Behavioral,Health [facility] [GROUP OF PHYSICIANS] - As soon as possible Care Physician,No Primary [Primary Care Provider] - Activity Restrictions/Additional Instructions: Follow-up with your counselor, psychiatrist and/or private physician. Disposition Disposition: Home, Self Care
[2021-02-05] MEDS: LORazepam 1 MG Tablet PO (03:34)
[2021-02-05 04:39] VITALS: BP 113/61; PULSE 71; RESP 18; O2SAT 96
[2021-02-05] MEDS: LORazepam 2 MG/ML Syringe 1 MG IV (04:40)
[2021-02-05 04:46] LABS: Absolute Lymphocyte Count 1.74 X10^3/uL (0.83-4.51); Absolute Neutrophil Count 7.8 X10^3/uL (2.0-7.7); Basophil# 0.02 X10^3/uL; Basophil% 0.2 % (0-1); Eosinophil# 0.03 X10^3/uL; Eosinophils% 0.3 % (0-5); Hematocrit 35.3 % (37-47); Hemoglobin 11.8 g/dL (12.0-15.0); Lymphocyte # 1.74 X10^3/ul (0.83-4.51); Lymphocyte % 16.5 % (19-41); Mean Corp Hgb Conc 33.4 g/dL (32-36); Mean Corpuscular Hgb 31.1 pg (27.0-32.0); Mean Corpuscular Volume 92.9 fL (81-99); Mean Platelet Vol. 11.1 fl (6.2-12.0); Monocyte# 0.86 X10^3/uL; Monocyte% 8.2 % (0-10); NRBC Flagged by Analyzer 0 % (0-5); Neutrophil # 7.83 X10^3/uL (2.7-7.7); Neutrophil % 74.4 % (47-70); Platelet Count 278 K/mm3 (150-450); RBC Distribution Width CV 12.9 % (11.6-14.6); RBC Distribution Width SD 43.8 fl (35.1-43.9); White Blood Count 10.5 K/mm3 (4.4-11.0)
[2021-02-05 05:01] LABS: Anion Gap 7 (5-15); BUN 13 mg/dL (7-18); BUN/Creat Ratio 16.4 RATIO (10-20); Calcium,Total 8.4 mg/dL (8.5-10.1); Chloride 107 mmol/L (98-107); Creatinine, Serum 0.79 mg/dL (0.55-1.02); EST Glomerular Filtration Rate 92 mL/min (>60); Est Glom Filt Rate - Afr Amer 111 mL/min (>60); Estimated Creatinine Clearance 99.25 ml/min; Glucose 104 mg/dL (74-106); Potassium 3.4 mmol/L (3.5-5.1); Sodium Level 138 mmol/L (136-145)
[2021-02-05 06:27] VITALS: BP 101/70; PULSE 90; RESP 18; O2SAT 98
[2021-02-05 06:58] VITALS: BP 91/68; RESP 16; O2SAT 99
== END 2021-02-05 07:04 | disposition home or self-care (01) ==
LOC: ED 04:07
PROVIDERS: Emergency Provider Emergency Medicine
DX: F41.0 Panic disorder [episodic paroxysmal anxiety] (principal); F32.9 Major depressive disorder, single episode, unspecified; F17.210 Nicotine dependence, cigarettes, uncomplicated; Z79.82 Long term (current) use of aspirin
CPT/HCPCS: 80048; 85025; 93005; 96361; 96374; 99285; J7030

== ENCOUNTER 2021-02-14 09:48 | Emergency (ER) | payer MEDICAID, SELFPAY ==
[2021-02-14 09:49] VITALS: BP 132/79; PULSE 82; RESP 16; TEMP 36.1; O2SAT 100; BMI 21.9
--- NOTE | 2021-02-14 09:58 | EKG12_ITS ---
Test Reason : MENTAL HEALTH Blood Pressure : / mmHG Vent. Rate : 075 BPM Atrial Rate : 075 BPM P-R Int : 136 ms QRS Dur : 086 ms QT Int : 390 ms P-R-T Axes : 036 037 041 degrees QTc Int : 435 ms Normal sinus rhythm Normal ECG Confirmed by NIRMALA JAIME, BHAVANA ([id number]), environmental conflict manager JENN BOYD ([id number]) on 02/16/2021 1:23:55 PM Referred By: Confirmed By:BHAVANA SILVESTRE MD
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
[2021-02-14 10:55] LABS: Absolute Lymphocyte Count 1.38 X10^3/uL (0.83-4.51); Absolute Neutrophil Count 4.8 X10^3/uL (2.0-7.7); Basophil# 0.02 X10^3/uL; Basophil% 0.3 % (0-1); Eosinophil# 0.05 X10^3/uL; Eosinophils% 0.7 % (0-5); Hematocrit 39.5 % (37-47); Hemoglobin 12.8 g/dL (12.0-15.0); Lymphocyte # 1.38 X10^3/ul (0.83-4.51); Lymphocyte % 20.3 % (19-41); Mean Corp Hgb Conc 32.4 g/dL (32-36); Mean Corpuscular Volume 95.6 fL (81-99); Mean Platelet Vol. 11.3 fl (6.2-12.0); Monocyte# 0.54 X10^3/uL; Monocyte% 7.9 % (0-10); NRBC Flagged by Analyzer 0 % (0-5); Neutrophil # 4.79 X10^3/uL (2.7-7.7); Neutrophil % 70.5 % (47-70); Platelet Count 254 K/mm3 (150-450); RBC Distribution Width CV 13.2 % (11.6-14.6); RBC Distribution Width SD 46.7 fl (35.1-43.9); Red Blood Count 4.13 M/mm3 (4.2-5.4); White Blood Count 6.8 K/mm3 (4.4-11.0)
[2021-02-14 10:59] LABS: Internal QC Validated? YES +Cl - CLEAR BKGD; Pregnancy, Serum, hCG Quali. NEGATIVE Negative
[2021-02-14 11:07] LABS: Anion Gap 4 (5-15); BUN 10 mg/dL (7-18); Calcium,Total 8.6 mg/dL (8.5-10.1); Chloride 107 mmol/L (98-107); Creatinine, Serum 0.77 mg/dL (0.55-1.02); EST Glomerular Filtration Rate 94 mL/min (>60); Est Glom Filt Rate - Afr Amer 114 mL/min (>60); Estimated Creatinine Clearance 105.78 ml/min; Glucose 90 mg/dL (74-106); Potassium 3.9 mmol/L (3.5-5.1); Sodium Level 138 mmol/L (136-145)
[2021-02-14 11:27] LABS: Alcohol, Blood (Medical)-Serum < 3.0 mg/dL
[2021-02-14 12:42] LABS: Amphetamine Urine VISTA NEGATIVE (<1000 ng/mL); Barbiturate Urine VISTA NEGATIVE (< 200 ng/mL); Benzodiazepine Urine VISTA NEGATIVE (< 200 ng/mL); Cocaine Urine VISTA NEGATIVE (< 300 ng/mL); Ecstacy Urine VISTA NEGATIVE (< 500 ng/mL); Methadone Urine VISTA NEGATIVE (< 300 ng/mL); PCP Urine VISTA NEGATIVE (< 25 ng/mL); THC Urine VISTA POSITIVE (< 50 ng/mL); Vista UDS pH Range 6
--- NOTE | 2021-02-14 13:11 | NURSING ---
CALLED CRISIS ANSWERING SERVICE. LEFT MESSAGE
--- NOTE | 2021-02-14 13:33 | NURSING ---
VILMA, CRISIS, HERE
[2021-02-14 15:36] VITALS: BP 122/70; PULSE 65; RESP 14; O2SAT 100
--- NOTE | 2021-02-14 16:37 | NURSING ---
CALLED SQUAD, ETA IS 20 MIN
--- NOTE | 2021-02-14 16:58 | NURSING ---
ALFREDO, FROM PHYSICANS, CALLED. ANOTHER 90 MIN
--- NOTE | 2021-02-14 17:11 | CM.ED ---
NICK Note 10:05am NICK spoke to Beatrice Mckeon RN and requested that Crisis be called to evaluate the patient.Beatrice indicated that Crisis will be called. Carito PUTNAM
--- NOTE | 2021-02-14 17:12 | CM.ED ---
SW Note NICK met with April from Crisis. She advised that she had made referral to [facility]. NICK received call from [facility] and spoke to Ana. Patient accepted and will be going on the pink slip. Accepting MD is Dulce. [facility]. RN to RN is main number [phone]. Nick updated insulation cupola charger and RN along with MD that patient accepted at [facility]. Laura, warehouse shift supervisor will arrange transport. Carito PUTNAM
[2021-02-14 19:28] VITALS: BP 118/78; PULSE 83; RESP 14; TEMP 36.8; O2SAT 99
== END 2021-02-14 18:50 ==
LOC: ED 10:48
PROVIDERS: Emergency Provider Emergency Medicine
DX: R45.851 Suicidal ideations (principal); F32.A Depression, unspecified; F17.210 Nicotine dependence, cigarettes, uncomplicated; F41.9 Anxiety disorder, unspecified; Z91.51 Personal history of suicidal behavior; Z79.82 Long term (current) use of aspirin
CPT/HCPCS: 36415; 80048; 80307; 82077; 84703; 85025; 87426; 93005; 99285

== ENCOUNTER 2021-03-01 18:57 | Emergency (ER) | payer MEDICAID, SELFPAY ==
[2021-03-01 18:58] VITALS: BP 136/67; PULSE 73; RESP 18; TEMP 36.4; O2SAT 100; BMI 24.8
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
--- NOTE | 2021-03-01 19:37 | EKG12_ITS ---
Test Reason : NUMBNESS Blood Pressure : / mmHG Vent. Rate : 069 BPM Atrial Rate : 069 BPM P-R Int : 136 ms QRS Dur : 090 ms QT Int : 400 ms P-R-T Axes : 049 046 049 degrees QTc Int : 428 ms Normal sinus rhythm Normal ECG Confirmed by JENNY JAIME, PALMER ([id number]), manager editorial JENN BOYD ([id number]) on 03/04/2021 11:00:44 AM Referred By: TORRI Confirmed By:PALMER ALVARADO MD
[2021-03-01 20:02] VITALS: BP 107/69; PULSE 73; RESP 19; O2SAT 100
[2021-03-01 20:24] LABS: Absolute Lymphocyte Count 2.12 X10^3/uL (0.83-4.51); Absolute Neutrophil Count 7.1 X10^3/uL (2.0-7.7); Basophil# 0.04 X10^3/uL; Basophil% 0.4 % (0-1); Hematocrit 36.9 % (37-47); Hemoglobin 12.1 g/dL (12.0-15.0); Lymphocyte # 2.12 X10^3/ul (0.83-4.51); Lymphocyte % 21.1 % (19-41); Mean Corp Hgb Conc 32.8 g/dL (32-36); Mean Corpuscular Hgb 30.8 pg (27.0-32.0); Mean Corpuscular Volume 93.9 fL (81-99); Mean Platelet Vol. 10.6 fl (6.2-12.0); NRBC Flagged by Analyzer 0 % (0-5); Neutrophil # 7.05 X10^3/uL (2.7-7.7); Neutrophil % 69.9 % (47-70); Platelet Count 296 K/mm3 (150-450); RBC Distribution Width CV 12.9 % (11.6-14.6); RBC Distribution Width SD 44.7 fl (35.1-43.9); Red Blood Count 3.93 M/mm3 (4.2-5.4); White Blood Count 10.1 K/mm3 (4.4-11.0)
[2021-03-01 20:29] LABS: ALB/GLOB Ratio 1.1 RATIO (0.9-2.4); AST(SGOT) 39 U/L (15-37); Alanine Aminotransfer ALT/SGPT 28 U/L (13-56); Alkaline Phosphatase 55 U/L (45-117); Anion Gap 4 (5-15); BUN 13 mg/dL (7-18); BUN/Creat Ratio 14.8 RATIO (10-20); Calcium,Total 9.7 mg/dL (8.5-10.1); Chloride 106 mmol/L (98-107); Creatinine, Serum 0.88 mg/dL (0.55-1.02); EST Glomerular Filtration Rate 81 mL/min (>60); Est Glom Filt Rate - Afr Amer 98 mL/min (>60); Globulin 3.5 g/dL (2.2-4.2); Glucose 83 mg/dL (74-106); Potassium 4.7 mmol/L (3.5-5.1); Protein, Total 7.5 g/dL (6.4-8.2); Sodium Level 136 mmol/L (136-145); Thyroid Stim Hormone (TSH) 1.22 uIU/mL (0.358-3.74); Troponin-I HS 4 pg/mL (3.0-54.0)
[2021-03-01 21:42] LABS: D-Dimer Quantitative (DVT/PE) 0.52 FEU/ug/m (0.27-0.49)
--- NOTE | 2021-03-01 21:43 | CT_ITS ---
STUDY: CTA CHEST REASON FOR EXAM: Female, 30 years old. chest pain, elevated dimer, PE protocol RADIATION DOSAGE (If Supplied By Facility): CTDIvol = ( 5.96 ) mGy, DLP = ( 189.37 ) mGycm TECHNIQUE: The examination was performed with the intravenous administration of IV 75mL Isovue-370. Post-processing of the angiographic images was performed, with multiplanar reformation and 3D reconstruction. Individualized dose optimization techniques were used for this CT. COMPARISON: None. FINDINGS: High density contrast, greater than 350 [place] units, within the pulmonary arteries and no motion artifact; high quality exam. No pulmonary embolism. No right heart strain. Heart and hilar central vascular structures are within normal limits. No mediastinal or hilar lymphadenopathy. Lungs are clear without nodule, mass or airspace opacity. There is no pleural effusion or pneumothorax. Central airways normal appearance. Extrathoracic soft tissues show no axillary lymphadenopathy. Thyroid gland is unremarkable. Osseous structures bony thorax are within normal limits. CT/CTA Chest W/WO Contrast IMPRESSION: Normal CTA chest examination, without a demonstrated pulmonary embolism or arterial dissection. Electronically Signed: Joseluis Montaño DO at 23:08 EST Tel , Service support ,
[2021-03-01 23:00] VITALS: TEMP 36.9
[2021-03-01 23:16] VITALS: PULSE 74; RESP 16; TEMP 36.8; O2SAT 97
== END 2021-03-01 23:21 | disposition home or self-care (01) ==
PROVIDERS: Emergency Provider Emergency Medicine
DX: M54.2 Cervicalgia (principal); R06.02 Shortness of breath; R20.2 Paresthesia of skin; F41.9 Anxiety disorder, unspecified; F17.210 Nicotine dependence, cigarettes, uncomplicated; F32.A Depression, unspecified; R45.851 Suicidal ideations; Z79.82 Long term (current) use of aspirin; Z79.890 Hormone replacement therapy
CPT/HCPCS: 71275; 80053; 84443; 84484; 85025; 85379; 93005; 99285; Q9967; A4216

== ENCOUNTER 2021-04-21 09:06 | Emergency (ER) | payer OTHER, MEDICAID, SELFPAY ==
[2021-04-21 09:08] VITALS: BP 124/73; PULSE 81; RESP 14; TEMP 36.6; O2SAT 98; BMI 24.2
--- NOTE | 2021-04-21 09:26 | EKG12_ITS ---
Test Reason : MEDICAL CLEARANCE Blood Pressure : / mmHG Vent. Rate : 067 BPM Atrial Rate : 067 BPM P-R Int : 146 ms QRS Dur : 090 ms QT Int : 410 ms P-R-T Axes : 047 045 054 degrees QTc Int : 433 ms Normal sinus rhythm Normal ECG Confirmed by JENNY JAIME, PALMER ([id number]), multimedia editor JENN BOYD ([id number]) on 04/22/2021 9:24:51 AM Referred By: STANLEY Confirmed By:PALMER ALVARADO MD
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
[2021-04-21] MEDS: LORazepam 2 MG/ML Syringe 1 MG IM (09:39)
[2021-04-21 09:56] LABS: Absolute Lymphocyte Count 1.48 X10^3/uL (0.83-4.51); Absolute Neutrophil Count 6.8 X10^3/uL (2.0-7.7); Basophil# 0.02 X10^3/uL; Basophil% 0.2 % (0-1); Eosinophil# 0.02 X10^3/uL; Eosinophils% 0.2 % (0-5); Hematocrit 42.8 % (37-47); Hemoglobin 14.5 g/dL (12.0-15.0); Lymphocyte # 1.48 X10^3/ul (0.83-4.51); Lymphocyte % 16.9 % (19-41); Mean Corp Hgb Conc 33.9 g/dL (32-36); Mean Corpuscular Hgb 30.4 pg (27.0-32.0); Mean Corpuscular Volume 89.7 fL (81-99); Mean Platelet Vol. 11.7 fl (6.2-12.0); Monocyte# 0.45 X10^3/uL; Monocyte% 5.1 % (0-10); NRBC Flagged by Analyzer 0 % (0-5); Neutrophil # 6.77 X10^3/uL (2.7-7.7); Neutrophil % 77.4 % (47-70); POSITIVE COUNT YES; POSITIVE MORPHOLOGY YES; Platelet Count 202 K/mm3 (150-450); RBC Distribution Width CV 13.3 % (11.6-14.6); RBC Distribution Width SD 43.7 fl (35.1-43.9); Red Blood Count 4.77 M/mm3 (4.2-5.4); White Blood Count 8.8 K/mm3 (4.4-11.0)
[2021-04-21 10:09] LABS: Anion Gap 8 (5-15); BUN 11 mg/dL (7-18); BUN/Creat Ratio 11.7 RATIO (10-20); Calcium,Total 9.4 mg/dL (8.5-10.1); Chloride 110 mmol/L (98-107); Creatinine, Serum 0.94 mg/dL (0.55-1.02); EST Glomerular Filtration Rate 75 mL/min (>60); Est Glom Filt Rate - Afr Amer 91 mL/min (>60); Estimated Creatinine Clearance 83.41 ml/min; Glucose 105 mg/dL (74-106); Potassium 3.7 mmol/L (3.5-5.1); Sodium Level 140 mmol/L (136-145)
[2021-04-21 10:30] LABS: Alcohol, Blood (Medical)-Serum < 3.0 mg/dL
[2021-04-21 10:38] LABS: Differential Indicated SCAN CRITERIA MET
[2021-04-21 12:07] VITALS: BP 177/72; PULSE 75; RESP 16; TEMP 37.1; O2SAT 99
[2021-04-21 12:28] LABS: Amphetamine Urine VISTA NEGATIVE (<1000 ng/mL); Barbiturate Urine VISTA NEGATIVE (< 200 ng/mL); Benzodiazepine Urine VISTA NEGATIVE (< 200 ng/mL); Cocaine Urine VISTA NEGATIVE (< 300 ng/mL); Ecstacy Urine VISTA NEGATIVE (< 500 ng/mL); Methadone Urine VISTA NEGATIVE (< 300 ng/mL); PCP Urine VISTA NEGATIVE (< 25 ng/mL); THC Urine VISTA POSITIVE (< 50 ng/mL); Vista UDS pH Range 7
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
[2021-04-21] MEDS: Ziprasidone IM 20 MG/ML VIAL IM (14:06)
--- NOTE | 2021-04-21 14:07 | NURSING ---
This RN, 2 other staff and Officer Leo helped pt back to room. PT was attempting to leave ama. Pt is pink slipped. Medication given per order
--- NOTE | 2021-04-21 14:22 | CM.ED ---
Social Work Telephone call to Malik Schumacher. Malik reports we are tight on beds but to be able to review clinicals and to confirm to be able to accept patient insurance. Clinical information faxed. Telephone call to Mary Whitley. Mary reports to also be tight on beds but to be able to review clinicals. Clinical information faxed. Telephone call to [facility]. Do accept patient insurance and to have openings. Clinical information faxed. Pending review. Will continue to follow. Kj YEN, SANJEEV
[2021-04-21 14:36] VITALS: RESP 14
--- NOTE | 2021-04-21 16:01 | CM.ED ---
[facility] by Dr. Busch. Nurse to call report to [phone]. Copy of [place] [facility] faxed. Medical team updated. Patient now sleeping. Nursing to update patient when patient wakes up. [employer] to set up transportation Telephone call to patient motherNathaniel to updated on patient disposition to [facility]. Telephone call to Fany Randolph and Charlie Neal, canceled referral due to finding other placement. PLAN: Discharge to [facility] Kj YEN, JOSE MS
--- NOTE | 2021-04-21 16:45 | NURSING ---
[facility] ETA 630PM
== END 2021-04-21 19:27 ==
PROVIDERS: Emergency Provider Emergency Medicine; Visit Provider Emergency Medicine
DX: F41.0 Panic disorder [episodic paroxysmal anxiety] (principal); R45.851 Suicidal ideations; Z79.899 Other long term (current) drug therapy; F17.210 Nicotine dependence, cigarettes, uncomplicated; F32.A Depression, unspecified
CPT/HCPCS: 80048; 80307; 82077; 85025; 87426; 93005; 96372; 99284; J3486

== ENCOUNTER 2021-05-03 14:18 | Emergency (ER) | payer MEDICAID, SELFPAY ==
[2021-05-03 14:19] VITALS: BP 117/73; PULSE 79; RESP 17; TEMP 36.2; O2SAT 98; BMI 23.4
--- NOTE | 2021-05-03 14:37 | CT_ITS ---
STUDY: CT ABDOMEN AND PELVIS WITHOUT CONTRAST REASON FOR EXAM: Male, 30 years old. ABD PAIN X1 MONTH BUT WORSE TODAY RADIATION DOSAGE (If Supplied By Facility): CTDIvol = ( 6.07 ) mGy, DLP = ( 314.06 ) mGycm TECHNIQUE: Transaxial images were obtained from the dome of the diaphragm to the symphysis pubis without oral contrast, and without intravenous contrast. Sagittal and coronal images were reconstructed. Individualized dose optimization techniques were used for this CT. COMPARISON: None. FINDINGS: The visualized lung bases are unremarkable. The visualized portions of the heart are within normal limits. Normal liver. Normal gallbladder and extrahepatic biliary system. Normal spleen. Normal pancreas. Normal bilateral adrenal glands. There is a punctate central right renal nephrolith without evidence of hydronephrosis. Normal left kidney. Normal visualized stomach. Normal small intestine. Normal colon. There is non-visualization of the appendix. Normal abdominal aorta. Normal inferior vena cava. Normal retroperitoneum. Mild wall thickening of the urinary bladder is present with no definitive surrounding inflammatory stranding. Normal abdominal wall. Normal osseous structures. CT/Abdomen/Pelvis without Cont IMPRESSION: 1. Mild wall thickening of the bladder lumen with early underlying cystitis not excluded, clinically correlate. Otherwise no additional acute intra-abdominal process or focal inflammation. 2. Punctate right renal central nephrolith with no evidence of hydronephrosis. Electronically Signed: Malick Rm DO at 16:10 EST ,
--- NOTE | 2021-05-03 14:39 | EDS_ITS ---
HPI HPI - GI History of Present Illness Chief Complaint: Abd Pain Detail of Chief Complaint: Abdominal pain Informant: patient Abdominal Pain/Flank Pain Current Severity: 10/04 Narrative Narrative: Patient presents to the emergency department chief complaint of abdominal pain that started initially a month ago. Patient's had pain intermittently. Patient states that she was just released from a psychiatric facility a few days ago. Patient's had ongoing mental health issues with history of suicidal ideation. 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 She has been on hormones but has not had any surgical procedures. Patient states the pain is mostly left lower quadrant. She had a bowel movement about noon today. Patient has had problems with constipation in the past. She denies any blood in her stool or black tarry stool. She denies urinary symptoms. No history of kidney stones. Currently rates the pain a 7 out of 10. Prior similar symptoms: Yes PFSH PFSH Medical History Anxiety Depression Medical History unable to obtain Home Medications finasteride 5 mg PO QHS 08/22/20 [History Last Taken 02/13/21] spironolactone 25 mg PO BID 08/22/20 [History Last Taken 02/13/21] aripiprazole 15 mg PO QHS 11/05/20 [History Last Taken 02/13/21] aspirin 81 mg PO QHS 11/05/20 [History Last Taken 02/13/21] buspirone 5 mg PO QHS 11/05/20 [History Last Taken 02/13/21] multivitamin 1 cap PO QHS 11/05/20 [History Last Taken 02/13/21] hydroxyzine pamoate 50 mg PO TID PRN PRN #30 cap 02/05/21 [Rx Last Taken 02/13/21] estradiol valerate 0.3 mg IM Q5D 02/14/21 [History Last Taken 02/14/21] Allergy/AdvReac Type Severity Reaction Status Date / Time No Known Allergies Allergy Verified 05/03/21 14:19 Family History unable to obtain Surgical History unable to obtain Social History Smoking Status: Current every day smoker tobacco type: cigarettes ROS ROS ED Constitutional Constitutional ED: Reports systems reviewed and no addt'l complaints, except as documented; Denies body ache(s), change in weight, chills or fever(s) Eyes Eyes: Denies acute decrease in peripheral vision, change in vision, double vision or loss of vision ENT ENT ED: Reports none; Denies ear pain, lip swelling, loss taste/smell, neck pain, otalgia or sore throat Cardiovascular Cardiovascular: Reports none; Denies abdominal pain, chest pain with activity, leg edema, lightheadedness, palpitations, rapid heart rate or syncope Respiratory/Chest Respiratory/Chest: Reports none; Denies change in mental status, dry cough, dyspnea, hemoptysis, shortness of breath at rest or shortness of breath with exertion Gastrointestinal Gastrointestinal: Reports none and abdominal pain; Denies change in stool character, diarrhea, hematemesis, hematochezia, melena, nausea, rectal bleeding or vomiting Genitourinary Genitourinary ED: Reports none; Denies abdominal discomfort, anuria, dysuria, genital pain or polyuria Musculoskeletal Musculoskeletal: Reports none; Denies arthralgias, back pain, difficulty walking, extremity pain, muscle weakness or myalgias Integumentary Reports none; Denies abscess or rash Neurologic Neurologic: Reports none; Denies abnormal gait, confusion, focal weakness, frequent falls, headache(s), loss of vision, numbness, paresthesias, radicular pain, vertigo or weakness Psychiatric Psychiatric: Reports systems reviewed and no addt'l complaints, except as documented and none; Denies behavioral changes, confusion, difficulty concentrating, hallucinations, suicidal ideation, tactile hallucinations or visual hallucinations Endocrine Endocrinology: Denies none, cold intolerance, excessive sweating, fatigue or heat intolerance Hematologic/Lymphatic Hematologic/Lymphatic: Reports none; Denies anemia, easy bleeding or easy bruising Allergic/Immunologic Allergic/Immunologic ED: Denies as per HPI, none, lip swelling, mouth swelling, throat swelling, tongue swelling or hives EXAM Physical Exam Const Vital Signs: 05/03/21 14:19 Temperature 97.1 F L Temperature Source Temporal Pulse Rate 79 Respiratory Rate 17 Blood Pressure 117/73 Blood Pressure Mean 87 Pulse Ox 98 Oxygen Delivery Method Room Air Positive well nourished and well developed General Appearance ED: well developed and NAD HEENT Reports TM's clear and moist mucous membranes normocephalic and atraumatic; Negative for trauma or tenderness Tympanic Membrane ED: Yes TM's clear Eyes PERRL and EOMs intact bilaterally General Eye ED: Negative for pale conjunctiva or scleral icterus Neck no lymphadenopathy, supple and no JVD General: Negative for tenderness Chest Wall inspection of chest normal and palpation of chest normal Chest: Negative for tenderness Resp normal respiratory effort and clear to auscultation bilaterally Effort and Inspection: Negative for respiratory distress or pain with movement Auscultation: Negative for rhonchi, wheezes or diminished lung sounds Cardio regular rate, regular rhythm, S1 normal heart sound, S2 normal heart sound and no murmurs Peripheral Pulses: pulses 2+ throughout GI normal to inspection, nondistended, normoactive bowel sounds, soft to palpation, non-distended and no masses GI Narrative: Patient with mild tenderness over left lower quadrant some guarding. There is no rebound, rigidity, or peritoneal signs. Palpation: tender Back/Spine no CVA tenderness and no thoracic nor lumbar tenderness Extremity normal to inspection General Extremety ED: Negative for edema General Extremity: Negative for edema Neuro oriented x3, CN's II-XII intact bilaterally, no sensory deficits noted and gait normal Sensorium / Orientation: awake, alert, oriented to person, oriented to place and oriented to time Motor Exam: strength 5/5 throughout and strength abnormal Psych mental status grossly normal Skin no rashes or lesions noted and no wounds MDM MDM MDM Narrative Medical decision making narrative: IV line established on arrival. Patient was given morphine and Zofran as well as Toradol. Lab work-up showed an elevated white count 13.1. Chemistries were unremarkable. CT scan of the abdomen pelvis without contrast ordered and results will be pending. Care of patient turned over to evening physician awaiting CT results and final disposition Lab Data Attestation: I reviewed the patient's lab results. Labs: Laboratory Results - last 24 hr 05/03/21 05/03/21 05/03/21 14:26 15:07 15:07 WBC Cancelled Corrected WBC Cancelled RBC Cancelled Hgb Cancelled Hct Cancelled MCV Cancelled MCH Cancelled MCHC Cancelled RDW Std Deviation Cancelled RDW Coeff of Carrie Cancelled Plt Count Cancelled MPV Cancelled Immature Gran % (Auto) Cancelled Neut % (Auto) Cancelled Lymph % (Auto) Cancelled Amador % (Auto) Cancelled Eos % (Auto) Cancelled Baso % (Auto) Cancelled Absolute Neuts (auto) Cancelled Absolute Lymphs (auto) Cancelled Total Counted Cancelled Neutrophils % (Manual) Cancelled Band Neutrophils % Cancelled Lymphocytes % (Manual) Cancelled Monocytes % (Manual) Cancelled Eosinophils % (Manual) Cancelled Basophils % (Manual) Cancelled Metamyelocytes % Cancelled Myelocytes % Cancelled Promyelocytes % Cancelled Blast Cells % Cancelled Plasma Cell % (Manual) Cancelled Other Cells % Cancelled Nucleated RBC % Cancelled Nucleated RBCs/100 WBC Cancelled Differential Comment Cancelled Diff Path Review Cancelled Hypersegmented Neuts Cancelled Atypical Lymphocytes Cancelled Reactive Lymphocytes Cancelled Smudge Cells Cancelled Toxic Granulation Cancelled Toxic Vacuolation Cancelled Dohle Bodies Cancelled Tashi Rods Cancelled Platelet Estimate Cancelled Plt Morphology Comment Cancelled RBC Morphology Cancelled Polychromasia Cancelled Hypochromasia Cancelled Poikilocytosis Cancelled Basophilic Stippling Cancelled Anisocytosis Cancelled Microcytosis Cancelled Macrocytosis Cancelled Spherocytes Cancelled Sickle Cells Cancelled Target Cells Cancelled Tear Drop Cells Cancelled Ovalocytes Cancelled Stomatocytes Cancelled [employer] Bodies Cancelled Little Cells Cancelled Bite Cells Cancelled Crenated Cell Cancelled Acanthocytes (Spur) Cancelled Rouleaux Cancelled Schistocytes Cancelled Sodium 139 Potassium 4.0 Chloride 108 H Carbon Dioxide 26.0 Anion Gap 5 BUN 10 Creatinine 0.79 Estim Creat Clear Calc 125.63 Est GFR (MDRD) Af Amer 149 Est GFR (MDRD) Non-Af 123 BUN/Creatinine Ratio 12.7 Glucose 95 Calcium 8.8 Lipase 98 Urine Color Yellow Urine Clarity Clear Urine pH 6.0 Ur Specific [place] 1.015 Urine Protein Negative Urine Glucose (UA) Normal Urine Ketones Negative Urine Occult Blood Negative Urine Nitrite Negative Urine Bilirubin Negative Urine Urobilinogen Normal Ur Leukocyte Esterase Negative Urine RBC 0 SEEN Urine WBC 0 SEEN Ur Squamous Epith Cells 5-10 SEEN Urine Bacteria 0 SEEN Urine Mucus 0 SEEN 05/03/21 15:30 WBC 13.1 H Corrected WBC RBC 4.22 L Hgb 12.9 L Hct 38.7 L MCV 91.7 MCH 30.6 MCHC 33.3 RDW Std Deviation 42.8 RDW Coeff of Carrie 12.7 Plt Count 259 MPV 11.7 Immature Gran % (Auto) 0.400 Neut % (Auto) 84.1 H Lymph % (Auto) 10.9 L Amador % (Auto) 4.3 Eos % (Auto) 0.1 Baso % (Auto) 0.2 Absolute Neuts (auto) 11.0 H Absolute Lymphs (auto) 1.43 Total Counted Neutrophils % (Manual) Band Neutrophils % Lymphocytes % (Manual) Monocytes % (Manual) Eosinophils % (Manual) Basophils % (Manual) Metamyelocytes % Myelocytes % Promyelocytes % Blast Cells % Plasma Cell % (Manual) Other Cells % Nucleated RBC % 0 Nucleated RBCs/100 WBC Differential Comment Diff Path Review Hypersegmented Neuts Atypical Lymphocytes Reactive Lymphocytes Smudge Cells Toxic Granulation Toxic Vacuolation Dohle Bodies Tashi Rods Platelet Estimate Plt Morphology Comment RBC Morphology Polychromasia Hypochromasia Poikilocytosis Basophilic Stippling Anisocytosis Microcytosis Macrocytosis Spherocytes Sickle Cells Target Cells Tear Drop Cells Ovalocytes Stomatocytes [employer] Bodies Hugoton Cells Bite Cells Crenated Cell Acanthocytes (Spur) Rouleaux Schistocytes Sodium Potassium Chloride Carbon Dioxide Anion Gap BUN Creatinine Estim Creat Clear Calc Est GFR (MDRD) Af Amer Est GFR (MDRD) Non-Af BUN/Creatinine Ratio Glucose Calcium Lipase Urine Color Urine Clarity Urine pH Ur Specific [place] Urine Protein Urine Glucose (UA) Urine Ketones Urine Occult Blood Urine Nitrite Urine Bilirubin Urine Urobilinogen Ur Leukocyte Esterase Urine RBC Urine WBC Ur Squamous Epith Cells Urine Bacteria Urine Mucus Discharge Plan Triage Chief Complaint: Abd Pain ED Provider: Shawn Mane Dx/Rx/DC Orders Clinical Impression: Abdominal pain Prescriptions: No Action spironolactone 25 mg Tablet 25 mg PO BID RF: 0 finasteride 5 mg tablet 5 mg PO QHS RF: 0 buspirone 5 mg tablet 5 mg PO QHS RF: 0 multivitamin Capsule 1 cap PO QHS RF: 0 aripiprazole 10 mg tablet 15 mg PO QHS RF: 0 aspirin 81 mg Capsule 81 mg PO QHS RF: 0 hydroxyzine pamoate [hydroxyzine pamoate] 25 MG capsule 50 mg PO TID PRN PRN (Reason: Anxiety) Qty: 30 RF: 0 estradiol valerate 20 mg/mL oil 0.3 mg IM Q5D RF: 0 Primary Care Provider: Care Physician,No Primary Referrals: Care Physician,No Primary [Primary Care Provider] -
[2021-05-03 14:55] LABS: Bacteria 0 SEEN /hpf (None Seen); Mucous, Urine 0 SEEN /hpf (<or=2+); Red Blood Cells-Urine 0 SEEN /hpf (0-5); White Blood Cells 0 SEEN /hpf (0-5)
[2021-05-03 14:56] LABS: Color, Urine Yellow (Yellow); Glucose, Dipstick Normal (Normal); Ketone-Dipstick Negative (Negative); Leukocyte Esterase-Dipstick Negative /ul (Negative); Nitrite-Dipstick Negative (Negative); Occult Blood-Urine Negative /ul (Negative); Protein-Dipstick Negative (Negative); Specific Gravity, Urine 1.015 (1.002-1.030); Urine Bilirubin Dipstick Negative (Negative); Urine Clarity Clear (Clear); Urine Urobilinogen Normal (Normal)
[2021-05-03 15:02] LABS: Squamous Epithelial Cells - UA 5-10 SEEN /hpf (0-5)
[2021-05-03] MEDS: 0.9% Normal Saline 1,000 ML 125 ML IV (15:18)
[2021-05-03] MEDS: Morphine 4 MG/ML Syringe IV (15:19)
[2021-05-03] MEDS: Ondansetron 4 MG/2 ML Vial IV (15:19)
[2021-05-03 15:26] LABS: Anion Gap 5 (5-15); BUN 10 mg/dL (7-18); BUN/Creat Ratio 12.7 RATIO (10-20); Calcium,Total 8.8 mg/dL (8.5-10.1); Chloride 108 mmol/L (98-107); Creatinine, Serum 0.79 mg/dL (0.70-1.30); EST Glomerular Filtration Rate 123 mL/min (>60); Est Glom Filt Rate - Afr Amer 149 mL/min (>60); Estimated Creatinine Clearance 125.63 ml/min; Glucose 95 mg/dL (74-106); Lipase 98 U/L (73-393); Sodium Level 139 mmol/L (136-145)
[2021-05-03 15:51] LABS: Absolute Lymphocyte Count 1.43 X10^3/uL (0.83-4.51); Basophil# 0.03 X10^3/uL; Basophil% 0.2 % (0-1); Eosinophil# 0.01 X10^3/uL; Eosinophils% 0.1 % (0-5); Hematocrit 38.7 % (40-54); Hemoglobin 12.9 g/dL (13.0-16.5); Lymphocyte # 1.43 X10^3/ul (0.83-4.51); Lymphocyte % 10.9 % (19-41); Mean Corp Hgb Conc 33.3 g/dL (32-36); Mean Corpuscular Hgb 30.6 pg (27.0-32.0); Mean Corpuscular Volume 91.7 fL (80-94); Mean Platelet Vol. 11.7 fl (6.2-12.0); Monocyte# 0.57 X10^3/uL; Monocyte% 4.3 % (0-10); NRBC Flagged by Analyzer 0 % (0-5); Neutrophil # 11.03 X10^3/uL (2.7-7.7); Neutrophil % 84.1 % (47-70); Platelet Count 259 K/mm3 (150-450); RBC Distribution Width CV 12.7 % (11.6-14.6); RBC Distribution Width SD 42.8 fl (35.1-43.9); Red Blood Count 4.22 M/mm3 (4.6-6.2); White Blood Count 13.1 K/mm3 (4.4-11.0)
[2021-05-03 16:18] LABS: Lactic Acid 0.7 mmol/L (0.4-1.9)
[2021-05-03 16:32] VITALS: BP 125/76; PULSE 62; RESP 15; O2SAT 98
[2021-05-03 17:01] VITALS: BP 131/69; PULSE 72; RESP 16; O2SAT 98
[2021-05-03] MEDS: Magnesium Citrate 300 ML PO (17:08)
== END 2021-05-03 17:23 | disposition home or self-care (01) ==
PROVIDERS: Emergency Provider Emergency Medicine; Visit Provider Emergency Medicine
DX: R10.9 Unspecified abdominal pain (principal); F17.210 Nicotine dependence, cigarettes, uncomplicated; F41.9 Anxiety disorder, unspecified; F32.A Depression, unspecified
CPT/HCPCS: 36415; 74176; 80048; 81001; 83605; 83690; 85025; 96361; 96374; 96375; 99284; J7030; A4216; J2405

== ENCOUNTER 2024-05-06 16:59 | Emergency (ER) | payer SELFPAY ==
[2024-05-06 17:00] VITALS: BP 128/78; PULSE 84; RESP 15; TEMP 36; O2SAT 100
--- NOTE | 2024-05-06 17:32 | ED.RN ---
PT NO LONGER FEELS IT IS NECESSARY TO BE SEEN BY A DOCTOR. PT IS CHOOSING TO LEAVE WITHOUT BEING SEEN. PT INFORMED THAT HE WOULD NOT BE ABLE TO FILE WORKERS COMP WITHOUT SEEING A DOCTOR. PT AGREEABLE TO THIS.
== END 2024-05-06 17:32 | disposition left against medical advice (07) ==
LOC: ED 17:36
DX: S09.90XA Unspecified injury of head, initial encounter (principal)